=== PATIENT | male | born 1960 | race Caucasian/White ===

== ENCOUNTER 2016-09-18 22:42 | Emergency (ER) | payer OTHER ==
[~2016-09-18 22:42] MED LIST: BETAHISTINE HCL; DIAZEPAM; EXCEDRIN MIGRAI1 TA2; FISH OIL 1,0001 CAP PO; GLUCOPHAGE500 MG; IBUPROFEN PO; LORTAB; MEDROL PO; MOTRIN600 MG PO; NEXIUM; OXYCONTIN10 MG; PROTONIX PO; ROPINIROLE HCL0.5 MG; TRIAMTERENE-HC1 EACH PO; ULTRAM PO; VIT B-12 PO; VYTORIN 10-40 T1 TAB; VYTORIN 10-40 T1 TAB PO; [UNRECOGNIZED DRUG - REMARK] PO
== END 2016-09-18 23:14 | disposition home or self-care (01) ==
LOC: SED 22:42
DX: S01.312A Laceration without foreign body of left ear, initial encounter (principal); Z23 Encounter for immunization; Z79.899 Other long term (current) drug therapy; W45.8XXA Other foreign body or object entering through skin, initial encounter
CPT/HCPCS: 12011; 90471; 90715; 99283